=== PATIENT | female | born 1965 | race Caucasian/White ===

== ENCOUNTER 2017-09-10 08:17 | Day surgery (SDC) | payer BC, MEDICAID, OTHER ==
[~2017-09-10 08:17] MED LIST: Lactated Ringers 1,000 ML IV SCH; Sodium Chloride 0.9% 10 ML Syringe FLUSH PRN; Sodium Chloride 0.9% 2.5 ML Syringe FLUSH PRN
--- NOTE | 2017-09-10 09:06 | PCM.PREANE ---
Preanesthetic Assessment - Anesthesia/Transfusion/Family Hx Anesthesia History: Prior Anesthesia Without Reaction Family History of Anesthesia Reaction: No Transfusion History: No Prior Transfusion(s) Intubation History: Unknown - Review of Systems General: No Symptoms Pulmonary: No Symptoms Cardiovascular: No Symptoms Gastrointestinal: Other (rectocele) Neurological: No Symptoms Other: Reports: None - Physical Assessment Height: 1.6 m Weight: 71.668 kg ASA Class: 2 Mental Status: Alert & Oriented x3 Airway Class: Mallampati = 2 Dentition: Reports: Normal Dentition Thyro-Mental Finger Breadths: 3 Mouth Opening Finger Breadths: 3 ROM/Head Extension: Full Lungs: Clear to Auscultation, Normal Respiratory Effort Cardiovascular: Regular Rate, Regular Rhythm - Allergies Allergies/Adverse Reactions: Allergies Allergy/AdvReac Type Severity Reaction Status Date / Time codeine Allergy Anaphylactic Verified 09/05/17 08:23 Shock - Blood Blood Available: No - Anesthesia Plan Pre-Op Medication Ordered: None - Acknowledgements Anesthesia Type Planned: MAC Pt an Appropriate Candidate for the Planned Anesthesia: Yes Alternatives and Risks of Anesthesia Discussed w Pt/Guardian: Yes Pt/Guardian Understands and Agrees with Anesthesia Plan: Yes PreAnesthesia Questionnaire HEENT History: Reports: Allergic Rhinitis Respiratory History: Gastrointestinal History: Reports: Other (See Below) Other Gastrointestinal History: occasional heartburn Musculoskeletal History: Reports: Fracture Other Musculoskeletal History: hx fx ankle Neurological History: Reports: Concussion Endocrine/Metabolic History: Reports: Hypothyroidism - Past Surgical History Head Surgeries/Procedures: Reports: None GI Surgical History: Reports: Appendectomy, Cholecystectomy Musculoskeletal Surgical History: Reports: Carpal Tunnel - SUBSTANCE USE Smoking Status *Q: Never Smoker Recreational Drug Use History: No - HOME MEDS Home Medications: Home Meds Fexofenadine [Brianda] 1 tab PO BID PRN 09/05/17 [History] Fluticasone Propionate [24 Hour Allergy Relief] 1 spray NASBOTH DAILY 09/05/17 [ History] Levothyroxine Sodium [Synthroid] 75 mcg PO DAILY 09/05/17 [History] Pseudoephedrine [Sudafed 12 Hour] 1 tab PO DAILY 09/05/17 [History] - CURRENT (IN HOUSE) MEDS Current Meds: Current Medications Lactated Ringer's (Ringers, Lactated) 1,000 mls @ 125 mls/hr IV ASDIRECTED FAY Last Admin: 09/10/17 08:50 Dose: 125 mls/hr Sodium Chloride (Saline Flush) 10 ml FLUSH ASDIRECTED PRN PRN Reason: Keep Vein Open Sodium Chloride (Saline Flush) 2.5 ml FLUSH ASDIRECTED PRN PRN Reason: Keep Vein Open
[2017-09-10] MEDS ORDERED: Lidocaine 2% 5 ML SDV ONE (10:05)
[2017-09-10] MEDS ORDERED: Midazolam 1 MG/ML 2 ML SDV ONE (10:06)
[2017-09-10] MEDS ORDERED: fentaNYL 100 MCG/2 ML SDV ONE (10:06)
[2017-09-10] MEDS ORDERED: Propofol 200 MG/20 ML SDV ONE (10:06)
--- NOTE | 2017-09-10 11:00 | PCM.OPNOTE ---
- General Post-Op/Procedure Note Date of Surgery/Procedure: 09/10/17 Operative Procedure(s): Diagnostic colonoscopy Findings: Rectal inflammation (superficial) and rectal polyp. Pre Op Diagnosis: Rectocele Post-Op Diagnosis: Rectal inflamation and rectal polyp Anesthesia Technique: MENA Primary Surgeon: Milvia Pool Condition: Good
--- NOTE | 2017-09-10 11:15 | PCM.POSTAN ---
POST ANESTHESIA ASSESSMENT - RESPIRATORY Respiratory Status: Respiratory Rate WNL, Airway Patent, O2 Saturation Stable - CARDIOVASCULAR CV Status: Pulse Rate WNL, Blood Pressure Stable - GASTROINTESTINAL GI Status: No Symptoms - PAIN Pain Score: 0 - POST OP HYDRATION Hydration Status: Adequate & Stable
--- NOTE | 2017-09-10 11:28 | PCM48HPAN ---
Post Anesthesia Note - EVALUATION WITHIN 48HRS OF ANESTHETIC Vital Signs in Normal Range: Yes Patient Participated in Evaluation: Yes Respiratory Function Stable: Yes Airway Patent: Yes Cardiovascular Function Stable: Yes Hydration Status Stable: Yes Pain Control Satisfactory: Yes Nausea and Vomiting Control Satisfactory: Yes Mental Status Recovered: Yes
--- NOTE | 2017-09-10 16:30 | OR ---
SURGEON: JOSEPH PIMENTEL MD DATE OF PROCEDURE: 09/10/2017 PREOPERATIVE DIAGNOSIS: Rectocele. POSTOPERATIVE DIAGNOSES: Rectocele, rectal inflammation, rectal polyp. PROCEDURE PERFORMED: Diagnostic colonoscopy. ANESTHESIA: MAC. INSTRUMENT USED: Olympus colonoscope. EXTENT OF EXAM: To the cecum. PREPARATION: Good. LIMITATIONS: None. INDICATION FOR EXAMINATION: The patient is a 51-year-old female, who presents with complaints of a rectocele. 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 She will be seeing colorectal surgeon for possible repair; however, has never had a colonoscopy. She denies any other changes in her bowel habits including hematochezia or melena. She had no family history of colon cancer. We discussed the colonoscopy procedure as well as expected perioperative course. We discussed the risks including bleeding, infection, or damage to surrounding structures including perforation. The patient verbalized understanding and wishes to proceed. PROCEDURE IN DETAIL: The patient was brought into the endoscopy suite and placed in the left lateral decubitus position. A time-out was completed verifying the patient's name, age, date of , allergies, and procedure to be performed. Monitored anesthesia care was induced and continuous oxygen was provided via face mask throughout the procedure. After adequate sedation was achieved, I did a close inspection at the anoderm as well as the vaginal introitus. I did not note prolapse of tissue outside of the introitus. A digital rectal exam was performed, which was normal other than some weak anterior pelvic floor musculature. A well lubricated colonoscope was inserted in the rectum and advanced under direct visualization to the level of cecum. The cecum was identified by both visual and anatomic landmarks. A photograph was taken of the cecal cap. I was able to retroflex the scope within the cecum, but did not get a picture. The scope was then straightened out and fully withdrawn while examining the color, texture, anatomy, and integrity of the mucosa from the cecum to the anal canal. The patient was noted to have some superficial ulceration in the rectal vault. Four- quadrant biopsies were taken at approximately 8 cm and sent, labeled as rectal biopsy. At approximately 10 cm, the patient had a small 2 to 3 mm rectal polyp. This was removed using a cold biopsy forceps and sent to pathology, labeled as rectal polyp. The scope was then retroflexed within the rectum to allow visualization of the anal canal opening. The patient had some mildly enlarged hemorrhoidal tissue, but otherwise this appeared normal and a photograph was taken. The scope was then straightened out and removed from the patient. The cecum to anus time was 18 minutes. The patient tolerated the procedure well. ENDOSCOPIC: 1. Rectocele. 2. Rectal inflammation. 3. Rectal polyp. RECOMMENDATIONS: The patient can come back to clinic to see me in 2 weeks; however, I will be referring her on to a colorectal surgeon for discussion of any further management of rectocele. JAIMEE JOHNS /[id number]
== END 2017-09-10 11:55 | disposition home or self-care (01) ==
LOC: MW.SDS 08:17
PROVIDERS: ATTEND Surgery
DX: D12.7 Benign neoplasm of rectosigmoid junction (principal); N81.6 Rectocele; J30.9 Allergic rhinitis, unspecified; E03.9 Hypothyroidism, unspecified; Z79.899 Other long term (current) drug therapy; Z79.51 Long term (current) use of inhaled steroids; Z90.49 Acquired absence of other specified parts of digestive tract; Z88.5 Allergy status to narcotic agent; Z87.891 Personal history of nicotine dependence
CPT/HCPCS: 45380; J2250; J3010; J7120; 88305; J2704